=== PATIENT | female | born 1990 | race Caucasian/White ===

== ENCOUNTER 2018-10-02 07:05 | Day surgery (SDC) | payer OTHER | END 2018-10-02 10:55 | disposition home or self-care (01) | LOC: CIR.AMB 07:05 | DX: N64.82 Hypoplasia of breast (principal) ==

== ENCOUNTER 2019-07-31 05:21 | Inpatient (IN) | payer OTHER ==
[~2019-07-31] VITALS: Ht 162.6 cm; Wt 69.9 kg
[2019-07-31] MEDS ORDERED: PRENATAL TABLE1 EAC1 PO (06:40)
== END 2019-08-02 12:08 | disposition home or self-care (01) | DRG 807 ==
LOC: OB/GYN 05:21 → LDR 05:21 → OB/GYN 09:55
PROVIDERS: ADMIT Obstetrics & Gynecology
PROC: 10E0XZZ Delivery of Products of Conception, External Approach (ICD-10-PCS; principal; 2019-07-31)
PROC: 3E033VJ Introduction of Other Hormone into Peripheral Vein, Percutaneous Approach (ICD-10-PCS; 2019-07-31)
PROC: 4A1HXCZ Monitoring of Products of Conception, Cardiac Rate, External Approach (ICD-10-PCS; 2019-07-31)
DX: O80 Encounter for full-term uncomplicated delivery (principal); Z37.0 Single live birth; Z3A.39 39 weeks gestation of pregnancy